=== PATIENT | female | born 1950 | race Caucasian/White ===

== ENCOUNTER → 2018-06-05 | Outpatient (CLI) | payer OTHER | END | disposition home or self-care (01) | LOC: CFH 08:15 | PROVIDERS: ATTEND Internal Medicine | DX: Z12.31 Encounter for screening mammogram for malignant neoplasm of breast (principal); M85.88 Other specified disorders of bone density and structure, other site; N95.9 Unspecified menopausal and perimenopausal disorder; Z78.0 Asymptomatic menopausal state | CPT/HCPCS: 77063; 77080; 77067 ==

== ENCOUNTER → 2018-07-07 | Outpatient (CLI) | payer OTHER | END | disposition home or self-care (01) | LOC: CFH 08:57 | PROVIDERS: ATTEND Internal Medicine | DX: E83.52 Hypercalcemia (principal) | CPT/HCPCS: 76536 ==

== ENCOUNTER → 2021-03-30 | Outpatient (CLI) | payer MEDICARE | END | disposition home or self-care (01) | LOC: CFH 08:45 | PROVIDERS: ATTEND Internal Medicine | DX: Z12.31 Encounter for screening mammogram for malignant neoplasm of breast (principal) | CPT/HCPCS: 77063; 77067 ==